=== PATIENT | female | born 1955 | race African-American/Black ===

== ENCOUNTER 2016-12-31 22:40 | Emergency (ER) | payer OTHER ==
[2016-12-31 22:49] VITALS: BP 210/116; PULSE 99; RESP 18; TEMP 98.6; O2SAT 100
[2016-12-31 23:00] VITALS: BP 217/119; PULSE 100; RESP 18; O2SAT 99
[2016-12-31] MEDS ORDERED: SODIUM CHLOR 0.9% 1000 ML INJ 1,000 ML IV SCH (23:02)
--- NOTE | 2016-12-31 23:09 | PD ---
HPI Chief Complaint: Abdominal Pain Time Seen by Provider: 23:02 Travel History International Travel<30 days: No Contact w/Intl Traveler<30days: No Traveled to known affect area: No History of Present Illness HPI The patient is a 61-year-old after [place] female who presents emergency department for abdominal pain. The patient states she just traveled from [place], [place], to [place] on vacation. The patient states she did not have a bowel movement for approximately one week. She took Ex-Lax this morning without any alleviation of her symptoms and then took a metformin and subsequently had 3 episodes of normal bowel movements. The patient then developed nausea followed by intractable vomiting throughout the day. The patient now notes continuing hiccups with epigastric abdominal pain. Epigastric abdominal pain is sharp, burning, radiates to the back, without any alleviating or exacerbating factors. She denies any previous history of abdominal surgeries. She denies any dysuria, frequency, or urgency. She does not have a local primary physician. PFSH Past Medical History Diabetes: Yes Patient Takes Glucophage: Yes (METFORMIN THIS MORNING) ?: Not Menopausal: Yes Past Surgical History Surgical History: No Previous Surgery Social History Alcohol Use: Yes (ONCE A MONTH) Tobacco Use: Yes (1/2 PPD) Substance Use: Yes (MARIJUANA "ALL THE TIME") Allergies-Medications (Allergen,Severity, Reaction): Coded Allergies: No Known Allergies (Unverified , 12/31/16) Reported Meds & Prescriptions Reported Meds & Active Scripts Active Active Prescriptions or Reported Medications Unobtainable Review of Systems Except as stated in HPI: all other systems reviewed are Neg General / Constitutional: No: Fever Cardiovascular: No: Chest Pain or Discomfort Respiratory: No: Shortness of Breath Gastrointestinal: Positive: Nausea, Vomiting, Abdominal Pain, Constipation, Changes in Bowel Habits, No: Diarrhea Genitourinary: No: Dysuria Physical Exam Narrative GENERAL: Awake, alert, 7 year-old female who appears her stated age and is in no acute respiratory distress. She is experiencing hiccups during the physical examination. SKIN: Focused skin assessment warm/dry. HEAD: Atraumatic. Normocephalic. EYES: Pupils equal and round. No scleral icterus. No injection or drainage. ENT: No nasal bleeding or discharge. Slightly dry mucous membranes. NECK: Trachea midline. No JVD. CARDIOVASCULAR: Regular, tachycardic with a heart rate of 104. RESPIRATORY: No accessory muscle use. Clear to auscultation. Breath sounds equal bilaterally. GASTROINTESTINAL: Abdomen soft, mild epigastric tenderness. No distention or guarding noted. No rigidity. MUSCULOSKELETAL: No obvious deformities. No clubbing. No cyanosis. No edema. NEUROLOGICAL: Awake and alert. No obvious cranial nerve deficits. Motor grossly within normal limits. Normal speech. PSYCHIATRIC: Appropriate mood and affect; insight and judgment normal. Data Data Last Documented VS Vital Signs Date Time Temp Pulse Resp B/P Pulse Ox O2 Delivery O2 Flow Rate FiO2 01/01/17 02:00 77 18 185/91 97 Room Air 12/31/16 22:49 98.6 Orders Complete Blood Count With Diff (12/31/16 23:02) Comprehensive Metabolic Panel (12/31/16 23:02) Lipase (12/31/16 23:02) Lactic Acid (12/31/16 23:02) Urinalysis - C+S If Indicated (12/31/16 23:02) Iv Access Insert/Monitor (12/31/16 23:02) Ecg Monitoring (12/31/16 23:02) Oximetry (12/31/16 23:02) Morphine Inj (Morphine Inj) (12/31/16 23:15) Ondansetron Inj (Zofran Inj) (12/31/16 23:15) Sodium Chlor 0.9% 1000 Ml Inj (Ns 1000 M (12/31/16 23:02) Sodium Chloride 0.9% Flush (Ns Flush) (12/31/16 23:15) Famotidine Inj (Pepcid Inj) (12/31/16 23:15) Labetalol Inj (Trandate Inj) (12/31/16 23:15) Ct Abd/Pel W/O Iv Contrast (12/31/16 23:02) Labs Laboratory Tests Test 12/31/16 23:05 White Blood Count 13.5 TH/MM3 Red Blood Count 4.63 MIL/MM3 Hemoglobin 14.6 GM/DL Hematocrit 43.3 % Mean Corpuscular Volume 93.7 FL Mean Corpuscular Hemoglobin 31.7 PG Mean Corpuscular Hemoglobin 33.8 % Concent Red Cell Distribution Width 13.2 % Platelet Count 293 TH/MM3 Mean Platelet Volume 8.7 FL Neutrophils (%) (Auto) 91.4 % Lymphocytes (%) (Auto) 6.6 % Monocytes (%) (Auto) 1.7 % Eosinophils (%) (Auto) 0.0 % Basophils (%) (Auto) 0.3 % Neutrophils # (Auto) 12.4 TH/MM3 Lymphocytes # (Auto) 0.9 TH/MM3 Monocytes # (Auto) 0.2 TH/MM3 Eosinophils # (Auto) 0.0 TH/MM3 Basophils # (Auto) 0.0 TH/MM3 CBC Comment DIFF FINAL Differential Comment Urine Color LIGHT-YELLOW Urine Turbidity CLEAR Urine pH 6.5 Urine Specific [place] 1.012 Urine Protein 300 mg/dL Urine Glucose (UA) NEG mg/dL Urine Ketones 10 mg/dL Urine Occult Blood SMALL Urine Nitrite NEG Urine Bilirubin NEG Urine Urobilinogen LESS THAN 2.0 MG/DL Urine Leukocyte Esterase NEG Urine RBC 2 /hpf Urine WBC LESS THAN 1 /hpf Urine Squamous Epithelial 1 /hpf Cells Urine Mucus FEW /lpf Microscopic Urinalysis Comment CULT NOT INDICATED Lactic Acid Level 3.0 mmol/L Sodium Level 137 MEQ/L Potassium Level 4.5 MEQ/L Chloride Level 107 MEQ/L Carbon Dioxide Level 16.5 MEQ/L Anion Gap 14 MEQ/L Blood Urea Nitrogen 51 MG/DL Creatinine 2.90 MG/DL Estimat Glomerular Filtration 17 ML/MIN Rate Random Glucose 128 MG/DL Calcium Level 9.6 MG/DL Total Bilirubin 0.4 MG/DL Aspartate Amino Transf 30 U/L (AST/SGOT) Alanine Aminotransferase 22 U/L (ALT/SGPT) Alkaline Phosphatase 118 U/L Total Protein 8.5 GM/DL Albumin 3.6 GM/DL Lipase 297 U/L [facility] Medical Decision Making Medical Screen Exam Complete: Yes Emergency Medical Condition: Yes Medical Record Reviewed: Yes Interpretation(s) EKG reveals sinus tachycardia with a heart rate of 101. Inverted T waves noted in lead 1 and aVL. Left ventricular hypertrophy. Q wave noted in lead V1 and V2. Laboratory Tests Test 12/31/16 23:05 White Blood Count 13.5 TH/MM3 Red Blood Count 4.63 MIL/MM3 Hemoglobin 14.6 GM/DL Hematocrit 43.3 % Mean Corpuscular Volume 93.7 FL Mean Corpuscular Hemoglobin 31.7 PG Mean Corpuscular Hemoglobin 33.8 % Concent Red Cell Distribution Width 13.2 % Platelet Count 293 TH/MM3 Mean Platelet Volume 8.7 FL Neutrophils (%) (Auto) 91.4 % Lymphocytes (%) (Auto) 6.6 % Monocytes (%) (Auto) 1.7 % Eosinophils (%) (Auto) 0.0 % Basophils (%) (Auto) 0.3 % Neutrophils # (Auto) 12.4 TH/MM3 Lymphocytes # (Auto) 0.9 TH/MM3 Monocytes # (Auto) 0.2 TH/MM3 Eosinophils # (Auto) 0.0 TH/MM3 Basophils # (Auto) 0.0 TH/MM3 CBC Comment DIFF FINAL Differential Comment Urine Color LIGHT-YELLOW Urine Turbidity CLEAR Urine pH 6.5 Urine Specific [place] 1.012 Urine Protein 300 mg/dL Urine Glucose (UA) NEG mg/dL Urine Ketones 10 mg/dL Urine Occult Blood SMALL Urine Nitrite NEG Urine Bilirubin NEG Urine Urobilinogen LESS THAN 2.0 MG/DL Urine Leukocyte Esterase NEG Urine RBC 2 /hpf Urine WBC LESS THAN 1 /hpf Urine Squamous Epithelial 1 /hpf Cells Urine Mucus FEW /lpf Microscopic Urinalysis Comment CULT NOT INDICATED Lactic Acid Level 3.0 mmol/L Sodium Level 137 MEQ/L Potassium Level 4.5 MEQ/L Chloride Level 107 MEQ/L Carbon Dioxide Level 16.5 MEQ/L Anion Gap 14 MEQ/L Blood Urea Nitrogen 51 MG/DL Creatinine 2.90 MG/DL Estimat Glomerular Filtration 17 ML/MIN Rate Random Glucose 128 MG/DL Calcium Level 9.6 MG/DL Total Bilirubin 0.4 MG/DL Aspartate Amino Transf 30 U/L (AST/SGOT) Alanine Aminotransferase 22 U/L (ALT/SGPT) Alkaline Phosphatase 118 U/L Total Protein 8.5 GM/DL Albumin 3.6 GM/DL Lipase 297 U/L Differential Diagnosis Differential diagnosis includes pancreatitis, gastritis, peptic ulcer disease, aortic dissection, ischemic bowel disease, biliary colic, choledocholithiasis. Narrative Course IV was established, labs are drawn and sent, and the patient was placed on cardiac telemetry monitoring and continuous pulse oximetry monitoring. EKG was ordered and interpreted. The patient was administered Pepcid, morphine, Zofran , and IV fluids. Lactic acid was sent to lab. CT of the abdomen and pelvis with IV contrast was ordered. The patient's creatinine is elevated at 2.9, lactic acid is elevated at 3.0. The patient's white count is elevated at 13.5. UA reveals no evidence of infection. CT the abdomen and pelvis was unremarkable. The patient was reevaluated at 2 AM, her symptoms had significantly improved. I had a discussion with her, regarding renal insufficiency, she notes a history of renal insufficiency. We discussed 23 hour observation for IV fluids versus by mouth challenge. The patient would prefer by mouth challenge, she was able to tolerate Gatorade without difficulty and at 239 requested discharge. She will be discharged on Zofran and Cawood as needed and is advised to follow-up with her primary physician. Diagnosis Primary Impression: Gastritis Qualified Code: K29.00 - Acute gastritis, presence of bleeding unspecified, unspecified gastritis type Additional Impression: Abdominal pain Qualified Code: R10.13 - Epigastric pain Patient Instructions: General Instructions, Narcotic given in the ED Additional Instructions: Medications as directed. Follow-up with your primary physician. Please provide the patient a copy of her CT results and lab results at discharge. Return if symptoms worsen or progress. Med/Other Pt SpecificInfo: Prescription(s) given Scripts Hydrocodone-Acetaminophen (Cawood)5-325 mg Tab1 Tab PO Q6H PRN (PAIN) #12 TAB Ref 0 Prov:Jesse Hagan MD 01/01/17 Ondansetron Odt (Zofran Odt)4 Mg Tab4 Mg SL Q6HR PRN (Nausea/Vomiting) #7 TAB Ref 0 Prov:Jesse Hagan MD 01/01/17 Disposition: 01 DISCHARGE HOME Condition: Stable Jesse Hagan MD Dec 31, 2016 23:09
[2016-12-31] MEDS ORDERED: ONDANSETRON HCL 4 MG/2 ML VIAL IVP ONE (23:15)
[2016-12-31] MEDS ORDERED: FAMOTIDINE 20 MG/2 ML VIAL IV PUSH ONE (23:15)
[2016-12-31] MEDS ORDERED: MORPHINE SULFATE 4 MG/ML INJ IV PUSH ONE (23:15)
[2016-12-31] MEDS ORDERED: SODIUM CHLORIDE 0.9% FLUSH 10 ML FLUSH IV FLUSH PRN (23:15)
[2016-12-31] MEDS ORDERED: LABETALOL HCL 100 MG/20 ML VIAL IV PUSH ONE (23:15)
[2016-12-31 23:22] VITALS: BP 193/94; PULSE 81; RESP 18; O2SAT 100
[2016-12-31 23:31] LABS: BLOOD, URINE SMALL (NEG); COMMENT (UR) CULT NOT INDICATED; CULTURE IF INDICATED CULT NOT INDICATED; GLUCOSE,URINE NEG (NEG); KETONE, URINE 10 mg/dL (NEG); MUCUS URINE FEW /lpf (OCC); NITRITE,URINE NEG (NEG); PH, URINE 6.5 (5.0-8.5); SQUAMOUS EPITHELIAL CELL URINE 1 /hpf (0-5); URINE COLOR LIGHT-YELLOW (YELLW/STRAW)
[2016-12-31 23:43] LABS: AUTOMATED NEUTROPHIL # 12.4 TH/MM3 (1.8-7.7); BASOPHIL % 0.3 % (0.0-2.0); HEMATOCRIT 43.3 % (35.0-46.0); HEMO FLAGS DIFF FINAL; LYMPH % 6.6 % (9.0-44.0); LYMPHOCYTE # 0.9 TH/MM3 (1.0-4.8); MEAN CELL VOLUME 93.7 FL (80.0-100.0); MEAN CORPUSCULAR HEMOGLOBIN 31.7 PG (27.0-34.0); MEAN CORPUSCULAR HGB CONC 33.8 % (32.0-36.0); MONO % 1.7 % (0.0-8.0); NEUT % 91.4 % (16.0-70.0); PLATELET COUNT 293 TH/MM3 (150-450); RED BLOOD COUNT 4.63 MIL/MM3 (4.00-5.30); RED CELL DISTRIBUTION WIDTH 13.2 % (11.6-17.2); WHITE BLOOD COUNT 13.5 TH/MM3 (4.0-11.0)
[2017-01-01 00:04] LABS: ANION GAP 14 MEQ/L (5-15); AST (GOT) 30 U/L (15-37); BICARBONATE 16.5 MEQ/L (21.0-32.0); BLOOD UREA NITROGEN 51 MG/DL (7-18); CHLORIDE 107 MEQ/L (98-107); GLOMERULAR FILTRATION RATE 17 ML/MIN (>89); POTASSIUM 4.5 MEQ/L (3.5-5.1); SODIUM (NA) 137 MEQ/L (136-145)
[2017-01-01 00:06] LABS: ALT (GPT) 22 U/L (10-53)
[2017-01-01 00:07] LABS: ALKALINE PHOSPHATASE 118 U/L (45-117); TOTAL BILIRUBIN ADULT 0.4 MG/DL (0.2-1.0)
[2017-01-01 00:12] VITALS: BP 191/100; PULSE 88; RESP 18; O2SAT 100
--- NOTE | 2017-01-01 01:24 | RADRPT ---
EXAM DATE/TIME: 01/01/2017 01:06 [facility] COMPARISON: No previous studies available for comparison. INDICATIONS : Upper abdomen pain with nausea and vomiting. ORAL CONTRAST: No oral contrast ingested. RADIATION DOSE: 7.87 CTDIvol (mGy) MEDICAL HISTORY : Diabetes mellitus type 2. SURGICAL HISTORY : None. ENCOUNTER: Initial ACUITY: 4 - 6 days PAIN SCALE: 10/10 LOCATION: upper abdomen TECHNIQUE: Volumetric scanning of the abdomen and pelvis was performed. Using automated exposure control and ad justment of the mA and/or kV according to patient size, radiation dose was kept as low as reasonably achievable to obtain optimal diagnostic quality images. DICOM format image data is available electro nically for review and comparison. FINDINGS: LOWER LUNGS: The visualized lower lungs are clear. LIVER: Homogeneous density without lesion. There is no dilation of the biliary tree. There are small calcif ied stones in the gallbladder. SPLEEN: Normal size without lesion. PANCREAS: Within normal limits. KIDNEYS: Normal in size and shape. There is no mass, stone, or hydronephrosis. There is a right renal cyst me asuring 13 mm a left renal cyst measuring 3 cm. ADRENAL GLANDS: Adrenal glands demonstrate adreniform shape thickening. VASCULAR: There is no aortic aneurysm. There is mild atherosclerotic disease. BOWEL/MESENTERY: The stomach, small bowel, and colon demonstrate no acute abnormality. There is no free intraperitone al air or fluid. ABDOMINAL WALL: Within normal limits. RETROPERITONEUM: There is no lymphadenopathy. BLADDER: No wall thickening or mass. REPRODUCTIVE: Within normal limits. INGUINAL: There is no lymphadenopathy or hernia. MUSCULOSKELETAL: There are degenerative changes of the lumbar spine. CONCLUSION: 1. No acute finding is identified within the abdomen or pelvis to explain the clinical symptoms. 2. Adreniform shape thickening of both adrenal glands suggestive of adrenal gland hyperplasia. 3. Non acute findings included cholelithiasis, atherosclerotic disease, and bilateral renal cysts. Monster Combs MD on January 01, 2017 at 1:19 Board Certified Radiologist. This report was verified electronically.
[2017-01-01 02:00] VITALS: BP 185/91; PULSE 77; RESP 18; O2SAT 97
[2017-01-01] MEDS ORDERED: ZOFR4TAB3 SL (02:41)
[2017-01-01] MEDS ORDERED: NORC5TAB PO (02:41)
--- NOTE | 2017-01-01 20:54 | EKG ---
Date Performed: 12/31/2016 Time Performed: 22:55:25 PTAGE: 61 years EKG: SINUS TACHYCARDIA MARKED LEFT AXIS DEVIATION LEFT VENTRICULAR HYPERTROPHY AND ST-T CHANGE P OSSIBLE SEPTAL MYOCARDIAL INFARCTION ABNORMAL ECG NO PREVIOUS TRACING DOCTOR: Noemi Kong Interpretating Date/Time 01/01/2017 20:53:25
== END 2017-01-01 02:51 | disposition home or self-care (01) ==
LOC: NEPC 22:40
DX: K29.70 Gastritis, unspecified, without bleeding (principal); R00.0 Tachycardia, unspecified; I51.7 Cardiomegaly; R94.31 Abnormal electrocardiogram [ECG] [EKG]; E11.9 Type 2 diabetes mellitus without complications; F17.200 Nicotine dependence, unspecified, uncomplicated
CPT/HCPCS: 74176; 80053; 81001; 83605; 83690; 85025; 93005; 96361; 96374; 96375; 99285; J2270; J2405; J7030